=== PATIENT | female | born 1960 | race Caucasian/White ===

== ENCOUNTER 2020-08-15 05:49 | Day surgery (SDC) | payer BC ==
[~2020-08-15] VITALS: Ht 162.6 cm; Wt 90.9 kg
[2020-08-15 06:20] LABS: HEMATOCRIT 39.9 % (36.0-48.0); HEMOGLOBIN 13.1 g/dL (12-16); MCH 30.5 pg (26.0-34.0); MCHC 32.8 g/dL (31.0-37.0); MCV 92.8 fL (80.0-100.0); MEAN PLATELET VOLUME 9.2 fL (7.4-10.4); RBC 4.3 10x6/uL (4.00-5.40); RDW 12.8 % (11.5-14.5); WBC 7.3 10x3/uL (4.8-10.8)
[2020-08-15 07:11] VITALS: BP 132/83; Ht 162.6 cm; Wt 90.9 kg
[2020-08-15] MEDS ORDERED: METFORMIN HCL500 M1 PO (07:23)
[2020-08-15] MEDS ORDERED: LEVSIN/ANASP0.125 MG PO (07:24)
[2020-08-15] MEDS ORDERED: HYDROCODON-ACE1 EA10 PO (07:24)
[2020-08-15] MEDS ORDERED: SYNTHROID125 MCG PO (07:25)
[2020-08-15] MEDS ORDERED: TIROSINT137 MCG PO (07:25)
[2020-08-15] MEDS ORDERED: LIPITOR10 MG PO (07:25)
[2020-08-15] MEDS ORDERED: BENICAR HCT 201 EAC1 PO (07:26)
--- NOTE | 2020-08-15 11:10 | NUR ---
PIV DC'D WITH TIP INTACT, DISCHARGE INSTRUCTIONS REVIEWED WITH PATIENT. PATIENT DRESSING IN PERSONAL CLOTHING. 1115 DISCHARGED HOME VIA WHEELCHAIR TO PRIVATE VEHICLE WITH SPOUSE
--- NOTE | 2020-08-16 17:53 | OP ---
PATIENT NAME: KARINA LYN MEDICAL RECORD: [id number] :58 LOCATION:D.OPS ADMISSION DATE: SURGEON: MANUEL BRITTON MD DATE OF OPERATION: 08/15/2020 PREOPERATIVE DIAGNOSIS: History of recurrent serrated polyp at 70 cm within the ascending colon, which has been tattooed. POSTOPERATIVE DIAGNOSIS: 1. History of recurrent serrated polyp at 70 cm within the ascending colon, which has been tattooed. 2. No evidence of recurrence or persistence of the polyp. PROCEDURES: 1. Total colonoscopy to cecum. 2. Cold endoscopic biopsies of the scar at 70 cm. 3. Retreatment of the area around the scar including scar with the argon plasma web press operator assistant utilizing the right colon setting in the forced mode. SURGEON: Manuel Britton MD HAND VIOLIN MAKER: None. BLOOD LOSS: Minimal. ANESTHESIA: IV sedation. COMPLICATIONS: None. The risks, possible complications and alternatives to the procedure were explained to the patient. She elects to proceed. Discussion specifically included, but was not limited to, bleeding requiring emergency reoperation, infection, endoscopic perforation. ENDOSCOPIC COURSE: The patient was conveyed to endoscopy suite electively on 08/15/2020. IV sedation was induced by the anesthesia staff. The patient was placed in the Foster position. A digital rectal examination was performed. A colonoscope was inserted through the anus. It was easily advanced to the cecum. The prep was adequate. I slowly withdrew the endoscope. I saw the tattooed site. Utilizing normal imaging and narrow band imaging, I saw no regrowth or persistence of the polyp. Cold endoscopic biopsies were obtained of the scar. I then retreated the entire area with the argon plasma web press operator assistant utilizing the right colon setting in the forced mode. I then slowly withdrew the endoscope. Pandiverticulosis was noted. I dragged the folds. The pullback was greater than 15-minute pullback. The endoscope was then withdrawn under direct vision. I will see the patient in my office in 2-3 weeks. It is very likely I will plan for her next colonoscopy to take place in 2 years. TRANSINT:[id number] Voice Confirmation ID: [id number] DOCUMENT ID: [id number] OPERATIVE REPORT [id number] RIKIKARINA MANUEL BRITTON MD at 5023 CC: CHEKO GARCIA and CLARIBEL FORTUNE V [id number] DICTATION DATE: 08/15/20 1040 ASSISTANT STORE DIRECTOR: 08/15/20 1514 [facility] 08/15/20 [facility] [address] [place] [address]
[2020-08-17 09:30] LABS: ANION GAP 13.8 mmol/L (8-16); CARBON DIOXIDE 27.1 mmol/L (21.0-32.0); CREATININE - SERUM 1.1 mg/dL (0.6-1.3); POTASSIUM - SERUM 4.9 mmol/L (3.5-5.1)
--- NOTE | 2020-08-17 18:37 | HP ---
PATIENT: KARINA LYN MEDICAL RECORD: [id number] ACCOUNT: [id number] LOCATION:[facility] : 58 ADMISSION DATE: 08/15/20 PCP: CLARIBEL FORTUNE MD HISTORY AND PHYSICAL EXAMINATION CHIEF COMPLAINT: Recurrent ascending colon polyp. HISTORY OF PRESENT ILLNESS: The patient has a recurrent serrated polyp at 70 cm. It has been injected. I have personally reviewed the endoscopic photos. I personally reviewed the endoscopic report. PAST MEDICAL AND SURGICAL HISTORY: Hypertension, noninsulin-dependent diabetes mellitus, hypothyroidism, history of hysterectomy. SOCIAL HISTORY: Nonsmoker. HOME MEDICINES: She is not on a blood thinner. ALLERGIES: IV CONTRAST, ERYTHROMYCIN, PHENERGAN WELL SUDAFED. PHYSICAL EXAMINATION: GENERAL: The patient does not appear acutely ill. She does not appear chronically ill. VITAL SIGNS: Reviewed. EARS: External ears appear normal. EYES: Extraocular movements are intact. NECK: Trachea midline. CHEST: No intercostal retractions. PULMONARY: Nonlabored, no stridor. IMPRESSION: Ascending colon polyp at 70 cm, which has been tattooed, it is recurrent. PLAN: Colonoscopy with polypectomy. TRANSINT:[id number] Voice Confirmation ID: [id number] DOCUMENT ID: [id number] MANUEL BRITTON MD at 1837 CC: CHEKO GARCIA and CLARIBEL FORTUNE V [id number] DICTATION DATE: 08/15/20 0945 IT ADMIN: 08/15/20 1027 [facility] 08/15/20 [id number] [place] [address]
== END 2020-08-15 11:15 | disposition home or self-care (01) ==
LOC: D.OPS 05:49
PROVIDERS: Anesthesiology; ATTEND Surgery
DX: D12.2 Benign neoplasm of ascending colon (principal); I10 Essential (primary) hypertension; E11.9 Type 2 diabetes mellitus without complications